=== PATIENT | male | born 1955 | race Caucasian/White ===

== ENCOUNTER 2021-11-09 09:15 | Emergency (ER) | payer OTHER, SELFPAY ==
--- NOTE | ~2021-11-09 | XR_ITS ---
EXAMINATION: XR chest 1V portable DATE: 11/09/2021 09:39 INDICATION: Right chest pain. TECHNIQUE: A single frontal view of the chest was obtained. COMPARISON: None. FINDINGS: There is mild atelectasis at left lung base. No pleural effusion or pneumothorax. The heart size is normal. There is a moderate-sized hiatal hernia. IMPRESSION: 1. Mild atelectasis at left lung base. 2. Moderate-sized hiatal hernia. Reviewed, dictated and finalized at location A.
[2021-11-09 09:15] VITALS: BP 122/80; PULSE 89; RESP 20; TEMP 36.6; O2SAT 98
--- NOTE | 2021-11-09 09:21 | ECG_ITS ---
Measurements Intervals [place] Rate: 95 P: 66 ID: [id number] QRS: 81 QRSD: 89 T: 12 QT: 342 QTc: 431 Interpretive Statements SINUS RHYTHM LOW QRS VOLTAGE IN PRECORDIAL LEADS ANTEROSEPTAL INFARCT, AGE INDETERMINATE BORDERLINE ST-T WAVE ABNORMALITY- INFERIOR LEADS BASELINE ARTIFACT- I, II, III, AVR, AVL, AVF, V1-V6 ABNORMAL ECG NO PREVIOUS ECG AVAILABLE FOR COMPARISON Electronically Signed On 11-09-2021 10:27:01 CDT by Hemal Jefferson D.O.
[2021-11-09 09:23] VITALS: BP 122/80; PULSE 91; RESP 14; TEMP 37.4; O2SAT 99
[2021-11-09 09:51] LABS: Basophils Absolute Auto 0.05 K/mm3 (0.00-0.10); Basophils Percent Auto 0.7 % (0.0-1.0); Eosinophils Absolute Auto 0.44 K/mm3 (0.02-0.50); Eosinophils Percent Auto 6.2 % (1.0-6.0); Hematocrit 46.3 % (37.0-46.0); Hemoglobin 14.8 g/dL (12.4-15.3); Immature Granulocyte Absolute 0.01 K/mm3 (0.00-0.00); Immature Granulocyte Percent A 0.1 % (0.0-0.0); Lymphocytes Absolute Auto 1.68 K/mm3 (1.10-4.50); Lymphocytes Percent Auto 23.6 % (18.0-42.0); Mean Corpuscular Hemoglobin 31.9 pg (27.0-31.0); Mean Corpuscular Volume 99.8 fL (78.0-102.0); Monocytes Absolute Auto 0.54 K/mm3 (0.10-0.90); Monocytes Percent Auto 7.6 % (2.0-11.0); Neutrophils Absolute Auto 4.4 K/mm3 (1.7-7.2); Neutrophils Percent Auto 61.8 % (50.0-70.0); Platelet Count Result 289 K/mm3 (150-420); Red Blood Count 4.64 M/mm3 (4.70-6.10); Red Cell Distribution Width 11.9 % (11.6-14.4); White Blood Count 7.1 K/mm3 (4.8-10.8)
--- NOTE | 2021-11-09 09:54 | PC.NURSE ---
Straight Cath UA obtained and sent to lab.
[2021-11-09 09:55] LABS: Add Urine Microscopic? YES; Appearance Urine Slightly Cloudy (Clear); Bilirubin Urine Negative (Negative); Blood Urine 2+ (Negative); Color Urine Light Yellow (Yellow); Glucose Urine UA Negative (Negative); Ketones Urine Negative (Negative); Leukocyte Esterase Ur 3+ (Negative); Nitrate Urine Positive (Negative); Protein Urine Trace (Negative); Urobilinogen Urine 0.2 mg/dL (0.2-1.0)
[2021-11-09 10:00] LABS: Bacteria Urine 3+ /hpf; WBC Urine 31-50 /hpf (0-3)
[2021-11-09 10:06] LABS: D Dimer 0.19 mg/L (0.19-0.50); Partial Thromboplastin Time 26.2 SEC (23.90-30.70); Prothrombin Time 10.9 Seconds (9.50-12.10)
[2021-11-09 10:10] LABS: Lactic Acid Reflex 2.1 mmol/L (0.4-2.0)
[2021-11-09 10:15] LABS: Alanine Aminotransferase 17 U/L (16-63); Albumin Level 3.2 g/dL (3.4-5.0); Alkaline Phosphatase 128 U/L (46-116); Anion Gap 8 mmol/L (8-16); Aspartate Amino Transferase 21 U/L (15-37); Bilirubin,Total 0.2 mg/dL (0.00-1.00); Blood Urea Nitrogen 18 mg/dL (7-18); CRP < 0.2 mg/dL (0.0-0.9); Calcium 8.7 mg/dL (8.5-10.1); Carbon Dioxide 28 mmol/L (21-32); Chloride 102 mmol/L (98-108); Estimated Glomerular Filt Rate > 60; Glucose 146 mg/dL (70-99); NT Pro B Type Natriuretic Pept 64 pg/mL (0-125); Osmolality Calculated 290 mOsm/kg (285-295); Potassium 3.9 mmol/L (3.5-5.1); Sodium 138 mmol/L (136-145); Total Protein 6.7 g/dL (6.4-8.2); Troponin I 7.5 ng/L (0.00-60.4)
--- NOTE | 2021-11-09 10:34 | ED.CHESTPAIN ---
HPI - Chest Pain General Chief Complaint: Chest Pain Stated Complaint: ambulance Time Seen by Provider: 11/09/21 09:21 Source: patient and EMS Mode of arrival: EMS Limitations: no limitations History of Present Illness HPI narrative: this is a 66-year-old gentleman with history of cerebral palsy detention patient that has a history of hiatal hernia hyperlipidemia, presents today with some chest pain that started earlier today currently has resolved with no shortness of breath no fever chills no cough or congestion no abdominal pain. MD complaint: chest pain Onset (ago): hour(s) Timing of current episode: now resolved Onset: during rest Related Data Home Medications Medication Instructions Recorded Confirmed acetaminophen 500 mg tablet 500 mg PO Q6H PRN Pain 03/15/21 11/09/21 carbamazepine (mood stabiliz) 300 300 mg PO Q12H 03/15/21 11/09/21 mg capsule,extend release 12 hr(mood stabilizing) cholecalciferol (vitamin D3) 50 50 mcg PO DAILY 03/15/21 11/09/21 mcg (2,000 unit) tablet cyanocobalamin (vitamin B-12) 500 mcg PO DAILY 03/15/21 11/09/21 1,000 mcg capsule docusate sodium 100 mg capsule 100 mg PO BID 03/15/21 11/09/21 (Colace) lacosamide 100 mg tablet (Vimpat) 100 mg PO Q12H 03/15/21 11/09/21 lamotrigine 200 mg tablet 200 mg PO BID 03/15/21 11/09/21 lorazepam 2 mg/mL injection 1 mg IM Q12H PRN Seizures 03/15/21 11/09/21 solution (Ativan) magnesium oxide 400 mg PO DAILY 03/15/21 11/09/21 multivitamin 1 tablet PO DAILY 03/15/21 11/09/21 potassium chloride 20 mEq 20 meq PO QAM 03/15/21 11/09/21 tablet,extended release sodium bicarbonate 650 mg tablet 650 mg PO BID 03/15/21 11/09/21 zonisamide 100 mg capsule 200 mg PO BID 03/15/21 11/09/21 atorvastatin 10 mg tablet (Lipitor) 10 mg PO HS 11/09/21 11/09/21 famotidine 20 mg tablet 20 mg PO BID 11/09/21 11/09/21 potassium citrate 10 mEq (1,080 10 meq PO DAILY 11/09/21 11/09/21 mg) tablet,extended release Allergies Allergy/AdvReac Type Severity Reaction Status Date / Time No Known Allergies Allergy Verified 11/09/21 09:47 Review of Systems Review of Systems: All systems reviewed & are unremarkable except as noted in HPI and below PMFSH Past Medical History Medical History Abnormal posture Cerebral palsy Chronic back pain Convulsions HERMELINDO (generalized anxiety disorder) GERD (gastroesophageal reflux disease) Hydronephrosis Hyperlipidemia Hypertension Iron deficiency anemia Exam Const: General: cooperative, healthy appearing, comfortable, no acute distress, alert, awake and Physically active HENMT: Head: normal to inspection General nose exam: Normal external nose present Face and sinus: normal facial exam Eyes: General: appearance normal, both eyes and all related structures Alignment and Position: alignment normal Periorbital: periorbital findings normal Eyelids: eyelids normal Neck: Neck: normal visual inspection, full ROM, no lymphadenopathy and no meningeal signs Chest: Chest palpation & inspection: normal inspection of the chest and normal palpation of entire chest wall Resp: Effort & Inspection: normal respiratory effort and able to speak in complete sentences Auscultation: clear to auscultation bilaterally Cardio: Jugular venous distension: no JVD Palpation: normal PMI Rate: regular rate Rhythm: regular rhythm GI: Inspection: normal to inspection : General: Yes bimanual renal exam normal bilaterally Skin: General skin exam: normal color and no rashes or lesions noted Wounds: no wounds Neuro: General: oriented to person, oriented to place, oriented to time and patient oriented x3 Extrem: General: normal to inspection, full ROM and capillary refill normal Psych: Appearance: grossly normal and well kempt Mental Status: mental status grossly normal Course Course Emergency Course: Labs x-rays reviewed with patient, EKG performed and reviewed, urinal
[2021-11-09 10:48] VITALS: BP 107/78; PULSE 91; RESP 20; TEMP 36.9; O2SAT 98
--- NOTE | 2021-11-09 10:54 | PC.NURSE ---
PT REPORT CALL TO [facility] AND NURSE TO NURSE REPORT GIVEN TO LA GILBERT VERBALIZED UNDERSTANDING
[2021-11-09] MEDS: cefTRIAXone 1 GM, LIDOCAINE HCL 1% LOCAL INJ 2.1 ML IM (11:14)
[2021-11-09 11:33] LABS: Reflex Lactic Acid Yes or No No Lactic Reflex
== END 2021-11-09 11:23 ==
PROVIDERS: Emergency Provider Emergency Medicine; PCP Family Medicine
DX: K44.9 Diaphragmatic hernia without obstruction or gangrene (principal); R07.89 Other chest pain; N30.00 Acute cystitis without hematuria; G80.9 Cerebral palsy, unspecified; F41.9 Anxiety disorder, unspecified; K21.9 Gastro-esophageal reflux disease without esophagitis; E78.5 Hyperlipidemia, unspecified; I10 Essential (primary) hypertension
CPT/HCPCS: 36415; 71045; 80053; 81001; 83605; 83880; 84484; 85025; 85380; 85610; 85730; 86140; 93005; 96372; 99284; J0696